=== PATIENT | female | born 1940 | race Caucasian/White ===

== ENCOUNTER 2017-10-31 19:18 | Emergency (ER) | payer OTHER ==
[2017-10-31] MEDS: ONDANSETRON 4 MG INJ IV (20:25)
[2017-10-31] MEDS: SOD CHLORIDE 0.9% 1,000 ML IV (20:25)
[2017-10-31 21:16] LABS: ADD MAN DIFF? NO
[2017-10-31 21:19] LABS: BASOPHILS % 0.3 % (0.0-2.0); EOSINOPHILS % 0.1 % (0.0-7.0); HEMATOCRIT 38.7 % (37.0-47.0); HEMOGLOBIN 12.5 g/dl (12.0-16.0); LYMPHOCYTES % 21.8 % (15.0-51.0); MEAN CORPUSCULAR HGB CONC 32.3 g/dl (32.0-37.0); MEAN CORPUSCULAR VOLUME 92.8 fl (82.0-101.0); MEAN PLATELET VOLUME 10.2 fl (7.4-10.4); MONOCYTE # 0.5 10^3/ul (0.3-0.9); MONOCYTES % 5.4 % (0.0-11.0); NEUTROPHIL # 6.5 10^3/ul (1.6-7.5); PLATELET COUNT 210 10^3/UL (140-415); RED BLOOD COUNT 4.17 10^6/ul (4.20-5.40); RED CELL DISTRIBUTION WIDTH 12.5 % (11.5-14.5)
[2017-10-31 21:25] LABS: ALANINE AMINOTRANSFERASE 18 IU/L (13-69); ALBUMIN 4.3 g/dl (3.3-4.9); ALBUMIN/GLOBULIN RATIO 1.43; ALKALINE PHOSPHATASE 79 IU/L (42-121); ANION GAP 13 (8-16); ASPARTATE AMINO TRANSFERASE 40 IU/L (15-46); BILIRUBIN,INDIRECT 0.2 mg/dl (0-1.1); BILIRUBIN,TOTAL 0.2 mg/dl (0.2-1.3); BLOOD UREA NITROGEN 18 mg/dl (7-20); CALCIUM 9.5 mg/dl (8.4-10.2); CARBON DIOXIDE 30 mmol/L (21-31); CHLORIDE 104 mmol/L (97-110); GLUCOSE 158 mg/dl (70-220); LIPASE 38 U/L (23-300); POTASSIUM 3.6 mmol/L (3.5-5.1); SODIUM 143 mmol/L (135-144); TOTAL PROTEIN 7.3 g/dl (6.1-8.1)
[2017-10-31 21:46] LABS: TROPONIN-I < 0.010 ng/ml (0.000-0.120)
[2017-10-31] MEDS: HALOPERIDOL 5 MG INJ IV (22:05)
[2017-10-31 23:06] LABS: ADD UMIC YES; UR AMORPHOUS CRYSTAL FEW /HPF (NONE SEEN); UR ASCORBIC ACID 40 mg/dL (NEGATIVE); UR BACTERIA FEW /HPF (NONE SEEN); UR BILIRUBIN (Dip) NEGATIVE (NEGATIVE); UR BLOOD (Dip) NEGATIVE (NEGATIVE); UR CLARITY SLIGHTLY CLOUDY (CLEAR); UR COLOR AMBER (YELLOW); UR GLUCOSE (Dip) NEGATIVE (NEGATIVE); UR KETONES (Dip) TRACE mg/dL (NEGATIVE); UR LEUKOCYTE ESTERASE (Dip) 1+ Leu/ul (NEGATIVE); UR MUCUS MODERATE /HPF (NONE SEEN); UR NITRITE (Dip) NEGATIVE (NEGATIVE); UR RBC 0 /HPF (0-5); UR SPECIFIC GRAVITY (Dip) 1.014 (1.003-1.030); UR TOTAL PROTEIN (Dip) NEGATIVE (NEGATIVE); UR UROBILINOGEN (Dip) 2+ mg/dL (NEGATIVE); UR WBC 17 /HPF (0-5)
[2017-10-31] MEDS: QUETIAPINE 100 MG TAB PO (23:34)
== END 2017-10-31 23:50 | disposition home or self-care (01) ==
LOC: E/R 23:50
DX: R11.10 Vomiting, unspecified (principal); R40.2122 Coma scale, eyes open, to pain, at arrival to emergency department; R40.2242 Coma scale, best verbal response, confused conversation, at arrival to emergency department; R40.2352 Coma scale, best motor response, localizes pain, at arrival to emergency department; G30.9 Alzheimer's disease, unspecified
CPT/HCPCS: 74019; 80053; 81001; 83690; 84484; 85025; 96361; 96374; 96375; 99284-25

== ENCOUNTER 2017-11-01 02:16 | Inpatient (IN) | payer OTHER ==
[2017-11-01] MEDS ORDERED: MAGNESIUM HYDROXIDE 30ML CUP PO (06:00)
[2017-11-01] MEDS: BISACODYL 10 MG SUPP PR (06:08)
[2017-11-01] MEDS ORDERED: HALOPERIDOL 5 MG TAB PO (06:30)
[2017-11-01] MEDS ORDERED: DIPHENHYDRAMINE 50 MG INJ (06:31)
[2017-11-01] MEDS: DIPHENHYDRAMINE 50 MG INJ IV (06:34)
[2017-11-01] MEDS: ONDANSETRON 4 MG INJ IV (06:35)
[2017-11-01] MEDS: morphine 2 MG INJ IV ×2 (06:35→21:23)
[2017-11-01] MEDS: HALOPERIDOL 5 MG INJ IM (07:26)
[2017-11-01] MEDS ORDERED: LORAZEPAM 2 MG INJ IV (10:52)
[2017-11-01] MEDS: LORAZEPAM 2 MG INJ IV ×2 (11:26→17:00)
[2017-11-01] MEDS: CEFTRIAXONE 1 GM/50 ML (PMX) 50 ML IVPB (13:59)
[2017-11-01] MEDS: QUETIAPINE 100 MG TAB PO (20:56)
[2017-11-01] MEDS ORDERED: morphine LIQ (10 MG/5 ML) CUP PO (23:00)
[2017-11-02] MEDS: LORAZEPAM 2 MG INJ IV ×4 (09:18→21:25)
[2017-11-02] MEDS: CEFTRIAXONE 1 GM/50 ML (PMX) 50 ML IVPB (09:19)
[2017-11-02] MEDS: QUETIAPINE 25 MG TAB PO (09:22)
[2017-11-02] MEDS: DIPHENHYDRAMINE 50 MG INJ IV (20:30)
[2017-11-02] MEDS: QUETIAPINE 100 MG TAB PO (20:36)
[2017-11-03] MEDS: LORAZEPAM 2 MG INJ IV ×5 (03:19→22:12)
[2017-11-03] MEDS: CEFTRIAXONE 1 GM/50 ML (PMX) 50 ML IVPB (08:23)
[2017-11-03] MEDS: QUETIAPINE 25 MG TAB PO (08:24)
[2017-11-03] MEDS: DIPHENHYDRAMINE 50 MG INJ IV (20:42)
[2017-11-03] MEDS: QUETIAPINE 100 MG TAB PO (20:43)
== END 2017-11-03 23:29 | disposition hospice, home (50) | DRG 56 ==
LOC: E/R 02:16 → MS1 03:13
DX: G30.9 Alzheimer's disease, unspecified (principal); G93.41 Metabolic encephalopathy; N39.0 Urinary tract infection, site not specified; F02.81 Dementia in other diseases classified elsewhere, unspecified severity, with behavioral disturbance; K59.00 Constipation, unspecified; G47.00 Insomnia, unspecified; Z87.891 Personal history of nicotine dependence
CPT/HCPCS: 99285-25